=== PATIENT | female | born 2000 | race Caucasian/White ===

== ENCOUNTER 2023-01-28 15:36 | Emergency (ER) | payer SELFPAY ==
[~2023-01-28] VITALS: Ht 175.3 cm; Wt 150.0 kg
[2023-01-28 15:43] VITALS: BP 157/106
== END 2023-01-28 16:04 | disposition left against medical advice (07) ==
LOC: ER 15:36
DX: Z53.21 Procedure and treatment not carried out due to patient leaving prior to being seen by health care provider (principal)
CPT/HCPCS: 99281